=== PATIENT | male | born 1960 | race Caucasian/White ===

== ENCOUNTER → 2018-09-21 | Outpatient (CLI) | payer OTHER ==
--- NOTE | 2018-09-22 12:46 | PCVCIMAG ---
APPROVED REPORT Study performed: 09/21/2018 11:16:19 Exam: Stress Echocardiogram Indication: Bradycardia, Hyperlipidemia Patient Location: Echo lab Stress Nurse: Vanessa Agosto RN Status: routine Ht: 6 ft 1 in HR: 53 bpm BP: 124/74 mmHg Rhythm: Bradycardia Procedure The patient underwent an Exercise Stress Test using the Chapo Protocol. Blood pressure, heart rate, and EKG were monitored. An Echocardiogram was performed by bomb technician in four stages in quad fashion. At peak stress, four selected images were obtained and placed side by side with resting images for comparison. Stress Test Details Stress Test: Exercise stress testing was performed using a Chapo protocol. HR Resting HR: 53 bpmMax Heart Rate (APMHR): 165 bpm Max HR Achieved: 153 bpmTarget HR (85% APMHR): 140 bpm % of APMHR: 92 Recovery HR: 72 bpm HR response to stress: Normal HR response to stress BP Resting BP: 124/74 mmHg Max BP: 142/78 mmHg Recovery BP: 140/76 mmHg BP response to stress: Normal blood pressure response to stress. ECG Resting ECG: Sinus Bradycardia Stress ECG: Sinus Rhythm Recovery ECG: Sinus Rhythm Clinical Reason for Termination: Maximal effort, Leg Discomfort, Dyspnea Exercise duration: 6 min 00 sec Highest Stage Achieved: Stage 2: 2.5 mph at 12% grade. Exercise capacity: 7.20 METs Overall Exercise Capacity for Age: Poor Stress ECG Conclusion ECG: Non-ischemic Clinical: Non-ischemic Pre-Stress Echo The resting Echocardiogram showed normal left ventricular contractility with an estimated Ejection Fraction of about >55%. Normal wall motion in all segments on baseline images. Post-Stress Echo The stress Echocardiogram showed normal left ventricular contractility with an estimated Ejection Fraction of about 60-65%. Normal augmentation of wall motion in all segments on post stress images. Clinical No clinical or ECG evidence for ischemia. Conclusion Clinical Response: Non-ischemic Exercise Capacity: Below Average Stress ECG Response: Non-ischemic Stress Echo Images: Non-ischemic The left ventricle is normal in size and wall thickness in both the rest and stress images. No clinical, EKG or echocardiographic evidence for ischemia. Normal stress echocardiogram with maximal exercise stress. 1. low risk study Other Information Study Quality: Adequate <Conclusion> The left ventricle is normal in size and wall thickness in both the rest and stress images. No clinical, EKG or echocardiographic evidence for ischemia. Normal stress echocardiogram with maximal exercise stress. 1. low risk study
== END | disposition home or self-care (01) ==
LOC: PCVCIMAG 11:22
PROVIDERS: ATTEND Internal Medicine
DX: R00.1 Bradycardia, unspecified (principal); E78.5 Hyperlipidemia, unspecified
CPT/HCPCS: 93325; 93351